=== PATIENT | female | born 2000 | race Hispanic/Latino ===

== ENCOUNTER → 2024-02-05 | Day surgery (SDC) | payer OTHER ==
[~2024-02-05] MED LIST: ESMOLOL HCL 100MG/10ML 10 MG/ML VIAL ONE; GLYCOPYRROLATE INJ 0.2 MG/ML VIAL ONE; LACTATED RINGER'S 1,000 ML ONE; LIDOCAINE HCL 2% LOCAL INJ 5 ML SDV VIAL INJ ONE; MIDAZOLAM HCL 2 MG/2 ML VIAL ONE; PHENYLEPHRINE HCL 1% 10 MG/ML VIAL ONE; TRAZODONE HCL100 MG PO
[2024-02-05] MEDS: LACTATED RINGER'S 1,000 ML BAG IV ONE (13:30)
[2024-02-05 16:15] LABS: WBC,FECAL (FECAL LACTOFERRIN) POSITIVE (NEGATIVE)
[2024-02-05 16:25] VITALS: BP 114/62; PULSE 65; RESP 12; O2SAT 100
[2024-02-06 07:42] LABS: C-REACTIVE PROTEIN 2 mg/L (0-10)
[2024-02-07 17:12] LABS: ATYPICAL pANCA TITER <1:20 titer (Neg:<1:20); SACCHAROMYCES CEREVISIAE IGA <20.0 Units (0.0-24.9)
== END | disposition home or self-care (01) ==
LOC: OR 12:43
PROVIDERS: ATTEND Internal Medicine Gastroenterology
DX: K51.80 Other ulcerative colitis without complications (principal); K51.20 Ulcerative (chronic) proctitis without complications; Z71.3 Dietary counseling and surveillance; D64.9 Anemia, unspecified; F41.9 Anxiety disorder, unspecified; F32.A Depression, unspecified; Z86.16 Personal history of COVID-19; Z68.27 Body mass index [BMI] 27.0-27.9, adult
CPT/HCPCS: 45380; 81025; 83630; 83993; 86140; 86256; 86671; 87045; 87177; 87324; 87328; 87449; J2001; J2250; J2371; J7121; 45378

== ENCOUNTER → 2025-01-23 | Day surgery (SDC) | payer OTHER ==
[~2025-01-23] MED LIST changes: -ESMOLOL HCL 100MG/10ML 10 MG/ML VIAL ONE; +FENTANYL CITRATE/PF 100MCG/2 ML INJ ONE; -GLYCOPYRROLATE INJ 0.2 MG/ML VIAL ONE; +HYOSCYAMINE SULFATE 0.5 MG/ML INJ ONE; -LACTATED RINGER'S 1,000 ML ONE; -MIDAZOLAM HCL 2 MG/2 ML VIAL ONE; +ONDANSETRON HCL INJ 2MG/ML 2ML 2 MG/ML VIAL ONE; -PHENYLEPHRINE HCL 1% 10 MG/ML VIAL ONE; +PREDNISONE10 MG PO; +PROPOFOL IV EMULSION 10 MG/ML 20 ML VIAL ONE; +PROPOFOL IV EMULSION 50 ML IV ONE; +ZEPOSIA0.92 MG PO
[2025-01-23] MEDS: LACTATED RINGER'S 1,000 ML ONE (06:46)
[2025-01-23 09:10] VITALS: BP 107/57; PULSE 89; RESP 16; TEMP 97.3; O2SAT 100
== END | disposition home or self-care (01) ==
LOC: OR 06:00
PROVIDERS: ATTEND Internal Medicine Gastroenterology
DX: K51.90 Ulcerative colitis, unspecified, without complications (principal); K63.5 Polyp of colon; K62.89 Other specified diseases of anus and rectum; D64.9 Anemia, unspecified; F32.A Depression, unspecified; Z79.899 Other long term (current) drug therapy
CPT/HCPCS: 36415; 45380; 45385; 83993; 84702; 86140; J1980; J2003; J2405; J2704 ×2; J3010; J7121; 45378